=== PATIENT | male | born 1985 | race Hispanic/Latino ===

== ENCOUNTER → 2020-09-16 | Outpatient (CLI) | payer OTHER ==
[~2020-09-16] MED LIST: METHACHOLINE KIT (J7674) INH ONE
--- NOTE | 2020-09-16 14:15 | PFTRPT ---
Height: 69.00 Inches Weight: 172.00 Lbs BSA: 1.94 Diagnosis: R06.02 DATE: 09/16/2020 ORDERED BY: Ros Bray NP QUALITY: Study of excellent technical quality. PROCEDURE: Under protocol, methacholine was administered. Even after a maximal dose of 25 mg or 188.875 CDUs, no provocation dose ever achieved. IMPRESSION: Negative methacholine challenge study. MTDD
--- NOTE | 2020-09-16 14:30 | REP ---
INDICATION: SHORTNESS OF BREATH PT HAS METHACHOLINE APPT FIRST COMPARISON: None. TECHNIQUE: PA and lateral. FINDINGS: The mediastinum and cardiac silhouette are normal. The lung dos santos are clear and without acute consolidation, effusion, or pneumothorax. The skeletal structures are intact and normal. IMPRESSION: No acute cardiopulmonary process. <Electronically signed by Tj Barbour > 09/16/20 [id number]
== END ==
LOC: M CARPUL 13:15
PROVIDERS: ATTEND Nurse Practitioner Adult Health
DX: R06.02 Shortness of breath (principal)
CPT/HCPCS: 71046; 94070; J7674

== ENCOUNTER → 2021-06-09 | Outpatient (CLI) | payer OTHER ==
--- NOTE | 2021-06-09 16:44 | REPVR ---
PROCEDURE INFORMATION: Exam: MR Lumbar Spine Without Contrast Exam date and time: 06/09/2021 8:25 AM Age: 36 years old Clinical indication: Low back pain TECHNIQUE: Imaging protocol: Multiplanar magnetic resonance images of the lumbar spine without intravenous contrast. COMPARISON: No relevant prior studies available. FINDINGS: No abnormal marrow signal. Lumbar vertebral body heights are maintained. No cord compression. No abnormal cord signal. Conus medullaris terminates at the L1 level. Paravertebral soft tissues are unremarkable. L1-L2: No significant canal or foraminal narrowing. L2-L3: No significant canal or foraminal narrowing. L3-L4: Right foraminal disc protrusion causing mild right foraminal narrowing. L4-L5: Broad-based disc bulge causes mild bilateral foraminal narrowing. No significant canal narrowing. L5-S1: No significant canal or foraminal narrowing. 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 No evidence of nerve root compression. Electronically signed by: Rishabh Monzon On 06/09/2021 16:44:02 PM
== END ==
LOC: M PLAIMG 07:23
PROVIDERS: ATTEND Orthopaedic Surgery
DX: M51.36 Other intervertebral disc degeneration, lumbar region (principal); M51.26 Other intervertebral disc displacement, lumbar region

== ENCOUNTER → 2022-04-09 | Outpatient (CLI) | payer OTHER ==
[2022-04-09 19:06] LABS: INR 0.94
[2022-04-09 19:07] LABS: PARTIAL THROMBOPLASTIN TIME 28.3 SECONDS (25.9-37.0)
== END ==
LOC: M LAB 15:23
PROVIDERS: ATTEND Physician Assistant
DX: Z01.812 Encounter for preprocedural laboratory examination (principal)

== ENCOUNTER → 2022-05-19 | Outpatient (CLI) | payer OTHER | LOC: M RAD 10:47 | PROVIDERS: ATTEND Family Medicine | DX: G43.809 Other migraine, not intractable, without status migrainosus (principal) ==

== ENCOUNTER → 2022-06-25 | Outpatient (CLI) | payer OTHER | LOC: M PLARAD 08:21 | PROVIDERS: ATTEND Physician Assistant | DX: M51.16 Intervertebral disc disorders with radiculopathy, lumbar region (principal) ==